=== PATIENT | female | born 1965 | race Caucasian/White ===

== ENCOUNTER 2019-03-31 20:08 | Emergency (ER) | payer BC ==
[~2019-03-31] VITALS: Ht 160 cm; Wt 113.4 kg
[2019-03-31] MEDS ORDERED: ONDANSETRON PF 4 MG/2 ML VIAL. IVP ONE (20:45)
[2019-03-31] MEDS ORDERED: IV NORMAL SALINE 1,000ML 1,000 ML IV ONE (20:45)
[2019-03-31] MEDS ORDERED: ACETAMINOPHEN 325 MG TABLET PO ONE (20:45)
--- NOTE | 2019-03-31 20:57 | PHYS DOC ---
Past History Past Medical History: Other Additional Past Medical Histor: "gallbladder problem, no stones", "fat on liver, open on intestine wide",RA Past Surgical History: Other Additional Past Surgical Histo: rt ooporectomy, rt knee, left heel Alcohol Use: None Drug Use: None Adult General Chief Complaint Chief Complaint: FEVER HPI HPI 53-year-old female presents with fever. The patient has been seeing Dr. Chappell for a work-up of her fatty liver. She is supposed to have a liver biopsy soon. She had her gallbladder evaluated and was found to be negative. The patient was told that if she developed a fever above 100 that she should come to the emergency room. She developed a fever today of 102. Her only other symptoms are a persistent cough without sputum and dysuria. These have both been going on for a couple of days. She does not currently have abdominal pain. She has no other complaints. Review of Systems Review of Systems Constitutional: Fever[] Eyes: Denies change in visual acuity, redness, or eye pain [] HENT: Denies nasal congestion or sore throat [] Respiratory: Cough without shortness of breath [] Cardiovascular: No additional information not addressed in HPI [] GI: Denies abdominal pain, nausea, vomiting, bloody stools or diarrhea [] : Dysuria[] Musculoskeletal: Denies back pain or joint pain [] Integument: Denies rash or skin lesions [] Neurologic: Denies headache, focal weakness or sensory changes [] Endocrine: Denies polyuria or polydipsia [] All other systems were reviewed and found to be within normal limits, except as documented in this note. Current Medications Current Medications Current Medications Medications (Trade) Dose Ordered Sig/Monse Start Time Stop Time Status Last Admin Dose Admin Acetaminophen (Tylenol) 650 mg 1X ONCE 03/31/19 20:45 03/31/19 20:46 DC Ondansetron HCl (Zofran) 4 mg 1X ONCE 03/31/19 20:45 03/31/19 20:46 DC Sodium Chloride 1,000 ml @ 1,000 mls/hr 1X ONCE 03/31/19 20:45 03/31/19 21:44 Allergies Allergies Allergies Coded Allergies Type Severity Reaction Last Updated Verified abatacept Allergy Intermediate 03/31/19 Yes gelatin Allergy Intermediate 03/31/19 Yes infliximab Allergy Unknown 03/31/19 Yes Physical Exam Physical Exam Constitutional: Well developed, obese, well nourished, no acute distress, non- toxic appearance. [] HENT: Normocephalic, atraumatic, bilateral external ears normal, oropharynx moist, no oral exudates, nose normal. [] Eyes: PERRLA, EOMI, conjunctiva normal, no discharge. [] Neck: Normal range of motion, no tenderness, supple, no stridor. [] Cardiovascular:Heart rate regular rhythm, no murmur [] Lungs & Thorax: Bilateral breath sounds clear to auscultation [] Abdomen: Bowel sounds normal, soft, no tenderness, no masses, no pulsatile masses. [] Skin: Warm, dry, no erythema, no rash. [] Back: No tenderness, no CVA tenderness. [] Extremities: No tenderness, no cyanosis, no clubbing, ROM intact, no edema. [] Neurologic: Alert and oriented X 3, normal motor function, normal sensory function, no focal deficits noted. [] Psychologic: Affect normal, judgement normal, mood normal. [] Current Patient Data Vital Signs Vital Signs Date Time Temp Pulse Resp B/P (MAP) Pulse Ox O2 Delivery O2 Flow Rate FiO2 03/31/19 20:08 102.6 115 20 99 Room Air EKG EKG [] Radiology/Procedures Radiology/Procedures [] Course & Med Decision Making Course & Med Decision Making Pertinent Labs and Imaging studies reviewed. (See chart for details) The patient's labs are unremarkable. Her urinalysis is negative for infection. I added an influenza chest x-ray. Her influenza A is positive. Chest x-ray shows interstitial infiltrates. Since the patient just developed a fever I will treat her with oseltamivir and give the first dose in the ED. The patient feels ill e nough to be discharged home. If her condition worsens, she will return to the emergency room. She is stable for discharge at this time. [] Dragon Disclaimer Dragon Disclaimer This electronic medical record was generated, in whole or in part, using a voice recognition dictation system. Departure Departure: Impression: Primary Impression: Influenza A Additional Impression: Pneumonia Disposition: HOME, SELF-CARE Condition: STABLE Referrals: FLAQUITO CHAPPELL MD (PCP) Patient Instructions: Influenza, Adult, [id number] Oseltamivir Phosphate (TAMIFLU) 75 Mg Capsule 1 CAP PO BID for influenza, #10 CAP Prov: MITZY TOWNSEND DO 03/31/19 Problem Qualifiers Additional Impression: Pneumonia Pneumonia type: due to influenza A virus Laterality: right Lung location: lower lobe of lung Qualified Codes: J11.00 - Influenza due to unidentified influenza virus with unspecified type of pneumonia MITZY TOWNSEND DO Mar 31, 2019 20:57
[2019-03-31 21:26] VITALS: BP 136/72
[2019-03-31 21:36] LABS: BASO % 0 % (0-3); EOS # 0.1 x10^3/uL (0.0-0.7); EOS % 1 % (0-3); HEMATOCRIT 41.8 % (36.0-47.0); HEMOGLOBIN 14.1 g/dL (12.0-15.5); LYMPH # 0.6 x10^3/uL (1.0-4.8); LYMPH % 8 % (24-48); MEAN CORPUSCULAR HEMOGLOBIN 31 pg (25-35); MEAN CORPUSCULAR HGB CONC 34 g/dL (31-37); MEAN CORPUSCULAR VOLUME 92 fL (79-100); MONO % 14 % (0-9); NEUT # 5.3 x10^3uL (1.8-7.7); NEUT % 77 % (31-73); PLATELET COUNT 144 x10^3/uL (140-400); RED BLOOD COUNT 4.55 x10^6/uL (3.50-5.40); RED CELL DISTRIBUTION WIDTH 13.8 % (11.5-14.5)
[2019-03-31 21:48] LABS: CALCIUM 8.3 mg/dL (8.5-10.1); CREATININE 0.8 mg/dL (0.6-1.0); GFR 74.7; POTASSIUM 4.2 mmol/L (3.5-5.1)
[2019-03-31 21:54] LABS: ALBUMIN 3.4 g/dL (3.4-5.0); ALBUMIN/GLOBULIN RATIO 0.9 (1.0-1.7); TOTAL BILIRUBIN 0.7 mg/dL (0.2-1.0); TOTAL PROTEIN 7.2 g/dL (6.4-8.2)
[2019-03-31 22:02] LABS: BACTERIA,URINE FEW /HPF (0-FEW); BILIRUBIN,URINE NEG (NEG); CLARITY,URINE HAZY; COLOR,URINE YELLOW; GLUCOSE,URINE NEG (NEG); NITRITE,URINE NEG (NEG); UROBILINOGEN,URINE 0.2 mg/dL (0.2 mg/dL)
[2019-03-31 22:03] LABS: SQUAMOUS EPITHELIAL CELL,UR MOD /LPF
[2019-03-31 23:25] LABS: INFLUENZA A PATIENT POSITIVE (NEGATIVE); INFLUENZA B PATIENT NEGATIVE (NEGATIVE)
--- NOTE | 2019-03-31 23:37 | RAD ---
CHEST PA LATERAL History: Congestion, cough, fever Comparison: None. Findings: Frontal and lateral views of chest were obtained. The cardiomediastinal silhouette is normal. Pulmonary vasculature is normal. Minimal interstitial infiltrates in the perihilar region greater in the right noted. Right lower hilar infiltrate suspected. No focal dense consolidation. No pleural effusion or pneumothorax is seen. There is no acute bone abnormality. IMPRESSION: Interstitial infiltrates. Interval follow-up to assess resolution should be considered. Electronically signed by: Daniel Perez MD (03/31/2019 11:34 PM) [facility] [place]
[2019-03-31] MEDS ORDERED: OSEL75CA PO (23:52)
[2019-04-01] MEDS ORDERED: OSELTAMIVIR 75 MG CAPSULE PO ONE (00:15)
== END 2019-04-01 00:26 | disposition home or self-care (01) ==
LOC: ER 20:08
DX: J11.00 Influenza due to unidentified influenza virus with unspecified type of pneumonia (principal); Z88.8 Allergy status to other drugs, medicaments and biological substances
CPT/HCPCS: 36415; 71046; 80053; 81001; 83690; 85025; 87086; 87804; 96374; 99285; J2405; J7030